=== PATIENT | female | born 1980 | race American Indian/Alaskan Native ===

== ENCOUNTER 2018-10-17 18:00 | Emergency (ER) | payer SELFPAY ==
[2018-10-17] MEDS ORDERED: NACL 0.9% 1000 ML 1,000 ML IV ONE ×2 (18:44→20:40)
--- NOTE | 2018-10-17 18:46 | Event Note ---
ED Screening Note Date of service: 10/17/18 Time: 18:43 ED Screening Note: 38 y/o female comes in for heat exhaustion symptom, Nausea, weakness dizziness. This initial assessment/diagnostic orders/clinical plan/treatment(s) is/are subject to change based on patients health status, clinical progression and re- assessment by fellow clinical providers in the ED. Further treatment and workup at subsequent clinical providers discretion. Patient/guardian urged not to elope from the ED as their condition may be serious if not clinically assessed and managed. Initial orders include:
[2018-10-17 19:10] LABS: Basophils # (Auto) 0.1 K/mm3 (0.0-0.1); Basophils % (Auto) 1.4 % (0.0-1.8); Eosinophils # (Auto) 0.2 K/mm3 (0.0-0.4); Eosinophils % (Auto) 2.5 % (0.0-4.3); Hematocrit 38.5 % (30.3-42.9); Lymphocytes # (Auto) 3.6 K/mm3 (1.2-5.4); Lymphocytes % (Auto) 46.6 % (13.4-35.0); Mean Corpuscular HGB Conc 34 % (30-34); Mean Corpuscular Volume 85 fl (79-97); Monocytes # (Auto) 0.7 K/mm3 (0.0-0.8); Monocytes % (Auto) 9.7 % (0.0-7.3); Platelet Count 338 K/mm3 (140-440); Red Blood Count 4.56 M/mm3 (3.65-5.03)
[2018-10-17 19:30] LABS: Alanine Aminotransferase 33 units/L (7-56); Albumin 4.5 g/dL (3.9-5); BUN/Creatinine Ratio 14; Blood Urea Nitrogen 11 mg/dL (7-17); Calcium 9.3 mg/dL (8.4-10.2); Hemolysis Index 8
[2018-10-17] MEDS ORDERED: ZOFRAN ODT PO ONE (20:05)
[2018-10-17] MEDS ORDERED: ZOFRAN ODT ONE (20:06)
[2018-10-17 20:16] LABS: Bacteria,Urine 1+ /HPF (Negative); Bilirubin,Urine NEG (Negative); Blood,Urine MOD (Negative); Color,Urine Yellow (Yellow); Hyaline Casts,Urine 2 /LPF; Mucus,Urine 3+ /HPF; Urobilinogen,Urine < 2.0 mg/dL (<2.0)
[2018-10-17 20:22] LABS: HCG Qualitative,Urine Negative (Negative)
[2018-10-17 22:07] VITALS: BP 140/93
--- NOTE | 2018-10-17 22:36 | Emergency Department Report ---
ED General Adult HPI - General Chief complaint: Medical Clearance Stated complaint: DIZZINESS/WEAKNESS/DEHYDRATION Time Seen by Provider: 10/17/18 18:42 Source: patient Mode of arrival: Wheelchair Limitations: No Limitations - History of Present Illness Initial comments: 38-year-old -[place] female with past medical history of hypertension presents to emergency department complaining of weakness and dizziness. Likely dehydration. She has been staying in a rented home, which is normal. Before meals temperature and that the house at been ranging from the upper 80s to the mid 90s last 5-6 days. Today she had continued to sweat and became nauseous and vomited twice, then developed some muscle cramps as well. EMS was dispatched to the home and brought her to the emergency department. She reports no chest pain palpitations no rashes. No fever. She's also been out of her blood pressure medication for about the last month, but does not know what her blood pressure did running has not been particularly -: Gradual Severity scale (0 -10): 0 Associated Symptoms: malaise, nausea/vomiting. denies: chest pain, cough, diaphoresis, loss of appetite, rash, seizure, shortness of breath, syncope Treatments Prior to Arrival: none - Related Data Allergies Allergy/AdvReac Type Severity Reaction Status Date / Time No Known Allergies Allergy Verified 10/17/18 20:20 ED Review of Systems ROS: Stated complaint: DIZZINESS/WEAKNESS/DEHYDRATION Other details as noted in HPI Comment: All other systems reviewed and negative ED Past Medical Hx - Past Medical History Previous Medical History?: Yes Hx Hypertension: Yes - Surgical History Past Surgical History?: No - Social History Smoking Status: Former Smoker Substance Use Type: Alcohol ED Physical Exam - General Limitations: No Limitations General appearance: alert, in no apparent distress - Head Head exam: Present: atraumatic, normocephalic - Eye Eye exam: Present: normal appearance, PERRL, EOMI Pupils: Present: normal accommodation - ENT ENT exam: Present: normal exam, normal orophraynx, mucous membranes moist - Neck Neck exam: Present: normal inspection, full ROM - Respiratory Respiratory exam: Present: normal lung sounds bilaterally. Absent: respiratory distress, wheezes, rales, accessory muscle use, prolonged expiratory - Cardiovascular Cardiovascular Exam: Present: regular rate, normal rhythm. Absent: systolic mu rmur, diastolic murmur, rubs, gallop - GI/Abdominal GI/Abdominal exam: Present: soft, normal bowel sounds. Absent: hyperactive bowel sounds, hypoactive bowel sounds, organomegaly, mass, bruit - Extremities Exam Extremities exam: Present: normal inspection, full ROM, normal capillary refill - Back Exam Back exam: Present: normal inspection, full ROM. Absent: CVA tenderness (R), C VA tenderness (L) - Neurological Exam Neurological exam: Present: alert, oriented X3, CN II-XII intact - Psychiatric Psychiatric exam: Present: normal affect, normal mood. Absent: flat affect, manic, suicidal ideation - Skin Skin exam: Present: warm, dry, intact, normal color. Absent: rash, erythema, petechiae, pallor, abrasion ED Course Vital Signs 10/17/18 10/17/18 18:42 22:06 Temperature 98.5 F 98.1 F Pulse Rate 77 77 Respiratory 20 18 Rate Blood Pressure 186/115 Blood Pressure 140/93 [Right] O2 Sat by Pulse 100 100 Oximetry ED Medical Decision Making - Lab Data Result diagrams: 10/17/18 18:55 10/17/18 18:55 - Medical Decision Making 38-year-old female untreated hypertension apparently was smoking and dehydrated due to extreme heat to home, treated with 2 present saline and [place] nonsense vacation. Blood pressure was reevaluated [place] 140/93, after she has been hydrated then had something to eat.. Advised her on hypertensive diet. Given information on a permanent of position. Follow-up with. She also been advised to find cooler living arrangements doing these dizzy these days, elevated temperature. Critical care attestation.: If time is entered above; I have spent that time in minutes in the direct care of this critically ill patient, excluding procedure time. ED Disposition Clinical Impression: HTN (hypertension), Dehydration, Heat cramps Disposition: DC-01 TO HOME OR SELFCARE Is pt being admited?: No Does the pt Need Aspirin: No Condition: Stable Instructions: Hypertension (ED), Heat Exhaustion (ED), Muscle Cramp (ED), Dehydration (ED), DASH Eating Plan (ED) Additional Instructions: The blood pressure improved to [id number], still elevated but not the same pressure. It was upon initial evaluation at 186, 1:15. U did have some heat exhaustion which is begin to correct itself with the treatment provided emerge department. Please be sure to adjust your living arrangements to a cool environment and make sure that she do continue with the appropriate hydration. Referrals: MILAGROS BAEZ MD [Primary Care Provider] - 3-5 Days
== END 2018-10-17 23:16 | disposition home or self-care (01) ==
LOC: ED 18:00
DX: T67.5XXA Heat exhaustion, unspecified, initial encounter (principal); I10 Essential (primary) hypertension; E86.0 Dehydration; X58.XXXA Exposure to other specified factors, initial encounter; Y93.89 Activity, other specified; Y92.89 Other specified places as the place of occurrence of the external cause; Y99.8 Other external cause status
CPT/HCPCS: 36415; 80053; 81001; 81025; 85025; 96360; 96361; 99284; J7030; Q0162